=== PATIENT | female | born 1965 | race Caucasian/White ===

== ENCOUNTER 2016-05-01 11:01 | Emergency (ER) | payer BC, OTHER ==
[2016-05-01 11:54] VITALS: BP 94/65; PULSE 73; RESP 16; TEMP 98.6; O2SAT 99
--- NOTE | 2016-05-01 13:21 | DX ---
Left knee, 5 views. History: Knee pain after fall. Unable to bear weight. Findings: There is a transverse nondisplaced fracture through the inferior pole of the patella. On a couple images there is also suggestion of a nondisplaced fracture line in the mid aspect of the mckenzie la. Suprapatellar joint effusion. Soft tissue swelling anterior to the patella and patellar tendon. N ormal underlying mineralization. Impression: Nondisplaced patellar fracture as above. Suprapatellar joint effusion and soft tissue swe lling.
--- NOTE | 2016-05-01 13:40 | UCPHY ---
H & P Patient Type: New Chief Complaint Nursing Narrative: Left Knee injury sp fall last pm . CMS intact distal to injury lpain is mainly below the knee cap. advil this am / icing HPI/ROS: Chief complaint: Left knee injury History of present illness: This is a 51-year-old female who presents to the clinic for evaluation of a left knee injury. Last night patient fell onto her knee. Since then she has had pain and swelling. It is difficult to move the knee. It is difficult to ambulate. She denies other associated signs or symptoms including no report of open wounds. No paresthesias or abnormal coolness in the leg. No report of trauma to other parts of the body. - Personal History LMP (Females 10-55): Over 28 Days Ago - Medical/Surgical History Other PMH: PCP Kemar James. FLu NONE. Tetanus UTD. Surg Left knee arthroscopic - Family History Significant Family History: No pertinent family hx - Social History Smoking Status: Never smoked - Physical Exam Exam: General: Alert, nontoxic Skin: No open wounds to the left knee Musculoskeletal: Edema around the left knee. Tender to palpation. It is not ranged given known fracture. The rest of the left leg is nontender. She can move the ankle and digits in the foot without difficulty. Vascular: DP and PT pulses 2+. Capillary refill brisk in the left foot. Neurologic: Sensation intact throughout the left leg. Constitutional: Initial Vital Signs Temperature (C) 37 C 05/01/16 11:46 Heart Rate 73 05/01/16 11:46 Respiratory Rate 16 05/01/16 11:46 Blood Pressure 94/65 L 05/01/16 11:46 O2 Sat (%) 99 05/01/16 11:46 O2 Delivery Mode Room Air Allergies/Adverse Reactions: No Allergies [NKDA] Allergy (Verified 05/01/16 11:54) HAYFEVER Allergy (Uncoded 05/01/16 11:54) Home Medications: Medication Instructions Recorded NO HOME MEDS 06/01/10 Medical Decision Making - Diagnostics Imaging: X-ray series left knee shows a nondisplaced patellar fracture, suprapatellar effusion and soft tissue swelling Procedures: Procedure: Splint placement. A knee immobilizing splint was applied. After application of the splint I returned and re-examined the patient. The splint was adequately immobilizing the joint and distal to the splint the patient's circulation and sensation was intact. Patient has crutches ED Course/Re-evaluation: Patient seen under the supervision of my secondary supervising physician Dr. Bill Beckett. Patient presents to the clinic for evaluation of a left knee injury. X-ray confirms a fracture. The leg is neurovascularly intact. Patient is discharged home. Home care is discussed. She is referred to Orthopedics for continued evaluation and care. Strict return precautions are given. Patient voiced understanding and agreement with plan. Departure - Departure Disposition: Home, Routine, Self-Care Clinical Impression: Patellar fracture Qualifiers: Encounter type: initial encounter Fracture type: closed Fracture morphology: transverse Fracture alignment: nondisplaced Laterality: left Qualifier Code: ( S82.035A) Nondisplaced transverse fracture of left patella, initial encounter for closed fracture Condition: Good Instructions: Patellar Fracture (ED) Additional Instructions: Follow-up with orthopedics for continued evaluation and care Use ibuprofen 600 mg 3 times a day for the next 2-3 days for pain Ice the injury, 20 minutes on, at least 3 times daily for the next 3 days Remain nonweightbearing until told otherwise by Orthopedics If symptoms worsen or new symptoms develop return to the clinic or the closest emergency department for recheck Referrals: Janette James PA [Primary Care Provider] - As per Instructions Amilcar Vance MD [Medical Doctor] - As per Instructions - PQRS PQRS Measurement: N/A
== END 2016-05-01 13:44 | disposition home or self-care (01) ==
LOC: CED 11:01
DX: S82.035A Nondisplaced transverse fracture of left patella, initial encounter for closed fracture (principal); M25.462 Effusion, left knee; W19.XXXA Unspecified fall, initial encounter; Y99.8 Other external cause status
CPT/HCPCS: 73564-PO; G0463-PO; L1830

== ENCOUNTER 2016-10-12 11:55 | Emergency (ER) | payer OTHER ==
[2016-10-12 12:03] VITALS: BP 107/71; PULSE 81; RESP 16; TEMP 97.9; O2SAT 98
--- NOTE | 2016-10-12 12:56 | EDPHY ---
H & P Time Seen by Provider: 10/12/16 12:35 HPI/ROS: CHIEF COMPLAINT: Possible cutaneous larvae right foot HISTORY OF PRESENT ILLNESS: 51-year-old immunocompetent female return from a trip to [place] 1 month ago. She has recently noticed a puncture wound with a linear structure she is concerned may be secondary to parasitic etiology. Is highly pruritic. Nontender. She is otherwise feeling well. No abdominal pain no nausea no vomiting diarrhea. PHYSICAL EXAM (Prior to examination, patient consented to physical exam, hands were washed and my usual and customary physical exam procedures followed) 1) GENERAL: Well-developed, well-nourished, alert and oriented. Appears to be in no acute distress. 2) HEAD: Normocephalic 3) HEENT: sclera anicteric 4) LUNGS: Breathing comfortably. 5) SKIN: On the patient's plantar aspect right foot she has a linear non moving structure which is consistent with possible cutaneous parasitic infection Smoking Status: Never smoked Constitutional: Initial Vital Signs Temperature (C) 36.6 C 10/12/16 11:59 Heart Rate 81 10/12/16 11:59 Respiratory Rate 16 10/12/16 11:59 Blood Pressure 107/71 10/12/16 11:59 O2 Sat (%) 98 10/12/16 11:59 O2 Delivery Mode Room Air Allergies/Adverse Reactions: No Allergies [NKDA] Allergy (Verified 05/01/16 11:54) HAYFEVER Allergy (Uncoded 05/01/16 11:54) Home Medications: Medication Instructions Recorded NO HOME MEDS 06/01/10 Albendazole [Albenza] 400 mg PO DAILY 3 Days 10/12/16 MDM/Departure - [facility] ED Course/Re-evaluation: High clinical suspicion for cutaneous parasitic infections such as cutaneous larvae migrans. Plan will be starting the patient on albendazole and follow up with infectious disease. Care and management in consultation with secondary supervising physician Dr Aj - Depart Disposition: Home, Routine, Self-Care Clinical Impression: Cutaneous larva migrans Condition: Good Instructions: Acute Rash (ED) Prescriptions: Albendazole [Albenza] 400 mg PO DAILY 3 Days Referrals: [facility] (ED,. [Edm Groups for Call Sched] - 2-3 days, call for appt.
== END 2016-10-12 13:00 | disposition home or self-care (01) ==
DX: B76.9 Hookworm disease, unspecified (principal)